=== PATIENT | female | born 1975 | race Caucasian/White ===

== ENCOUNTER → 2017-04-26 | Outpatient (CLI) | payer OTHER | END | disposition home or self-care (01) | LOC: C.PAPS 11:09 | PROVIDERS: ATTEND Physician Assistant | DX: Z12.4 Encounter for screening for malignant neoplasm of cervix (principal); Z97.5 Presence of (intrauterine) contraceptive device ==

== ENCOUNTER → 2017-06-23 | Outpatient (CLI) | payer OTHER ==
--- NOTE | 2017-06-23 11:46 | DIAGNOSTIC IMAGING REPORT ---
MRI OF THE RIGHT SHOULDER WITHOUT CONTRAST CLINICAL HISTORY: Worsening right shoulder pain with limited range of motion. COMPARISON STUDY: No previous studies for comparison. TECHNIQUE: Utilizing a 1.5 Thelma magnet and dedicated coil, multiplanar, multiecho imaging of the right shoulder performed without intravenous or intra-articular contrast. FINDINGS: Alignment of the right shoulder is anatomic. There is no marrow replacement. No fracture is evident. There is a posterior superior labral tear. In addition, there is a suspected anterior inferior labral tear with associated periosteal stripping. Adjacent soft tissue edema is present. The proximal long head of the biceps tendon is intact. There is no full-thickness rotator cuff tear. There is tendinopathy of distal supraspinatus with possible partial-thickness surface tear. There is no tendon retraction or muscular atrophy. No mass or fluid collection shown adjacent to the right shoulder. IMPRESSION: 1. Posterior superior labral tear. In addition, suspected anterior inferior labral tear with associated periosteal stripping with mild adjacent soft tissue edema. 2. Tendinopathy of distal supraspinatus with suspected partial thickness bursal surface tear. No tendon retraction or muscular atrophy. No full-thickness rotator cuff tear. Electronically signed by: Yao Elmore M.D. 06/23/2017 11:45 AM Dictated Date/Time: 06/23/2017 11:33 AM
== END | disposition home or self-care (01) ==
LOC: C.MRI 10:21
PROVIDERS: ATTEND Family Medicine
DX: S43.491A Other sprain of right shoulder joint, initial encounter (principal); X58.XXXA Exposure to other specified factors, initial encounter; M75.91 Shoulder lesion, unspecified, right shoulder

== ENCOUNTER → 2017-08-11 | Day surgery (SDC) | payer OTHER ==
[2017-07-29 09:58] VITALS: Ht 160 cm; Wt 62.7 kg
[~2017-08-11] VITALS: Ht 160 cm; Wt 62.7 kg
[~2017-08-11] MED LIST: ATROPINE SULFATE 0.1 MG/ML 5ML SYR IV PRN; BCPILLS PO; BUPIVACAINE/EPINEPHRINE 0.25% 1:200,000 30 ML VIAL ONE; CALC500T72 PO; CEFAZOLIN 2000MG IV PUSH 15 ML IV SCH; CHOL400T PO; DEXAMETHASONE SOD INJ 4 MG/ML VIAL IV PRN; EpHEDrine SULFATE INJ 50 MG/ML AMP IV PRN; EpINEphrine HCL INJ 1 MG/ML 1ML SYRINGE ONE; FENTANYL CITRATE INJ 50 MCG/1 ML 2 ML VIAL IV PRN; IBUP-1459 PO; KETO10TA PO; KETOROLAC TROMETHAMINE 30 MG/ML VIAL IV. PRN; LABETALOL HCL IV 5 MG/ML 20ML IV PRN; LACTATED RINGER'S 1000ML 1,000 ML IV SCH; LIDOCAINE HCL 1% MPF 2 ML VIAL ONE; LIDOCAINE HCL 2% 2 ML VIAL (20MG/ML) ONE; LIDOCAINE HCL 2% LOCAL 20 ML VIAL ONE; METHYLPREDNISOLONE ACETATE 80 MG/ML VIAL ONE; METOCLOPRAMIDE HCL INJ 5 MG/ML 2 ML VIAL IV PRN; MIDAZOLAM HCL 1 MG/ML 2ML VIAL ONE; MULT-506 PO; MoRPHine SULFATE 10 MG/ML CARP/VIAL IV PRN; ONDANSETRON INJ 2 MG/ML 2 ML VIAL IV PRN; OXYC-57 PO; OXYCODONE/ACETAMINOPHEN 5-325 TAB ONE; OXYCODONE/ACETAMINOPHEN 5-325 TAB PO PRN; PHENYLEPHRINE 100MCG/ML 5ML SYR IV PRN; PROPOFOL IV EMULSION 10 MG/ML 20 ML VIAL IV ONE; ROPIVACAINE 0.5% 5 MG/ML 30 ML VIAL ONE; SODIUM CHLORIDE 0.9% 1000ML 1,000 ML IV SCH
--- NOTE | 2017-08-11 06:50 | History & Physical Bridge - SC ---
H&P Re-Evaluation Bridge Note: I have examined the patient, reviewed the History & Physical and in the interval since the performance of the History & Physical I have noted the following changes of clinical significance: No changes noted
--- NOTE | 2017-08-11 09:09 | [facility] Post Operative Brief Note ---
Immediate Operative Summary Operative Date Aug 11, 2017. Pre-Operative Diagnosis Right Shoulder Adhesive Capsulitis Post-Operative Diagnosis same as preop Procedure(s) Performed Extensive Debridement, Lysis of Adhesions Surgeon Dr. Catalan Logging Operations Inspector Surgeon(s) NEIL Palomino Estimated Blood Loss 5cc Findings Consistent with Post-Op Diagnosis Specimens none Drains None Anesthesia Type MAC Regional Complication(s) none Disposition Disposition: Recovery Room / PACU
--- NOTE | 2017-08-11 09:17 | Discharge Instructions-SurgCtr ---
Discharge Instructions Date of Service Aug 11, 2017. Visit Reason for Visit: Right Shoulder Adhesive Capsulitis Discharge Discharge Diagnosis / Problem: SAME ABOVE Discharge Goals Goal(s): Decrease discomfort, Improve function Activity Recommendations Activity Limitations: as noted below Lifting Limitations: gradually increase as tolerated Exercise/Sports Limitations: gradually increase as tolerated Shower/Bathe: tomorrow Anesthesia . Post Anesthesia Instructions: If you have had General Anesthesia or IV Sedation: * Do not drive today. * Resume driving when surgeon permits. * Do not make important decisions or sign legal documents today. * Call surgeon for: 1. Temperature elevations greater than 101 degrees F. 2. Uncontrollable pain. 3. Excessive bleeding. 4. Persistent nausea and vomiting. 5. Medication intolerance (nausea, vomiting or rash). * For nausea and vomiting use only clear liquids such as: tea, soda, bouillon until nausea subsides, then gradually increase diet as tolerated. * If you have any concerns or questions, call your surgeon's office. If physician is unavailable and it is an emergency, call 911 or go to the nearest emergency room. . Instructions / Follow-Up Instructions / Follow-Up MEDICATIONS: * Resume previous medications unless instructed otherwise by your surgeon. * Always take pain medication on a full stomach or with food to avoid upset stomach. * Do not drink alcohol or drive while taking narcotics. * Ibuprofen or Tylenol may be taken if narcotic not needed. SPECIAL CARE INSTRUCTIONS: __ None _X_ Keep extremity elevated and iced x 48 hours; apply ice 20-30 minutes 8-10 times/day. May remove at night. _X_ Sling (REMOVE AFTER 24 HOURS) __24 hrs/day __ Remove at night __ Shoulder Immobilizer __ 24 hrs/day __ Remove at night _X_ Dressing __ Maintain until seen in office, may shower with plastic over site _X_ Remove dressings in 24-48 hours and then may shower _X_ Cover incisions with band-aids after showering __ Do not remove steri-strips Call physician if chills or temperature rises above 102 degrees or pain unrelieved by prescribed pain medications at . . Diet Recommendations Home Diet: no limitations Fluid Restriction: None Procedures Procedures Performed: Extensive Debridement, Lysis of Adhesions Pending Studies Studies pending at discharge: no Work Instructions Return To Work: 3 days (OR WHEN PAIN IS CONTROLLED ) Lifting Limitations: none Medical Emergencies . Who to Call and When: Medical Emergencies: If at any time you feel your situation is an emergency, please call 911 immediately. . Non-Emergent Contact Non-Emergency issues call your: Primary Care Provider Call Non-Emergent contact if: you have a fever, temperature is above 101.5 . . "Provider Documentation" section prepared by Donny Pena. .
--- NOTE | 2017-08-11 09:37 | OPERATIVE REPORT ---
DATE OF OPERATION: 08/11/2017 PREOPERATIVE DIAGNOSIS: Adhesive capsulitis of the right shoulder. POSTOPERATIVE DIAGNOSIS: Same. PROCEDURE: Right shoulder diagnostic arthroscopy with extensive debridement, lysis of adhesions and manipulation under anesthesia. SURGEON: Dr. Hector Catalan. MACHINE PAINT MIXER: Billy Pena PA-C, whose assistance was necessary for helping with positioning the arm and helping with instrumentation and closure. ANESTHESIA: Sedation with a right interscalene nerve block. COMPLICATIONS: None. CONDITION: Stable to PACU. INDICATIONS: Fabby is a pleasant 42-year-old female who presented to my office with increasing pain and tightness of her right shoulder. MRI and clinical examination were diagnostic for adhesive capsulitis of the right shoulder. After failing conservative treatment, she elected to proceed with a right shoulder capsular release. DESCRIPTION OF PROCEDURE: On 08/11/2017, she arrived at [facility] for the above procedure. She was seen in the preoperative holding area and the operative extremity was identified and signed. She was given a preoperative antibiotic and a right interscalene nerve block. She was taken back to the operating room, laid on the table in supine position and put under basic sedation. She was then put into the beachchair position. The right shoulder was prepped and draped in the sterile fashion. Time-out was done and the patient's operative extremity was properly identified. On preoperative physical examination, she had about 80 degrees of abduction and 30 degrees of external rotation. A gentle manipulation was done under anesthesia to facilitate insertion of the arthroscope. The scope was then placed in the posterior portal. Diagnostic arthroscopy showed severe redness and inflammation of the superior, middle and inferior glenohumeral ligaments. There was no cartilage damage to the humeral head or the glenoid. An anterior portal was made under direct visualization and a shaver was used to start an extensive debridement of the intraarticular structures. The synovitis was debrided from the superior glenohumeral ligament, but did not fully release the ligament. Time was spent freeing up the long head of the biceps tendon. An ablator was then used to do a lysis of adhesions and open up the entire rotator interval all the way to the undersurface of the coracoid. The ablator was also lysed the adhesions off the middle and anterior inferior glenohumeral ligaments. A shaver was then used to continue debridement and debride back redundant capsule back to stable margins. Significant time was spent ensuring hemostasis. Care was taken not to disrupt the subscapularis or the axillary nerve. Once I was happy with the overall release, arthroscopic instruments were removed from the shoulder and gentle manipulation was done under anesthesia. I was able to get full range of motion of the shoulder. The scope was placed back into the glenohumeral joint and a final diagnostic arthroscopy showed no additional pathology. An ablator was used to ensure hemostasis and a spinal needle was placed for an injection. Arthroscopic instruments were removed from the shoulder. Portal sites were closed with 3-0 nylon. The shoulder was then injected with 80 mg of Depo-Medrol and 5 mL of Marcaine. She was then placed in a soft dressing and regular arm sling. She was then extubated, transferred to a litter and taken to the postanesthesia care unit in stable condition. She tolerated the procedure well. I attest to the content of the Intraoperative Record and any orders documented therein. Any exception s are noted below.
[2017-08-11 10:13] VITALS: BP 108/75; PULSE 83; O2SAT 96
--- NOTE | 2017-08-11 10:37 | Anesthesia Progress Nt - [facility] ---
Anesthesia Post Op Note Date & Time Aug 11, 2017 at 10:37 Vital Signs Pain Intensity: 6 Vital Signs Past 12 Hours Date Time Temp Pulse Resp B/P (MAP) Pulse Ox O2 Delivery O2 Flow Rate FiO2 08/11/17 10:13 83 16 108/75 (86) 96 Room Air 08/11/17 09:14 36.8 77 16 106/78 (87) 99 Room Air 77 08/11/17 08:32 82 08/11/17 08:32 82 143 100 08/11/17 08:30 100/70 08/11/17 08:27 71 6 100 08/11/17 08:27 71 08/11/17 08:25 99/68 08/11/17 08:22 69 08/11/17 08:22 69 0 100 08/11/17 08:20 99/67 08/11/17 08:17 73 10 100 08/11/17 08:17 74 08/11/17 08:15 102/81 08/11/17 08:12 73 18 100 08/11/17 08:12 73 08/11/17 08:10 105/73 08/11/17 08:08 123/75 08/11/17 08:08 75 25 123/75 (91) 100 Mask 6 08/11/17 08:07 91 0 08/11/17 08:02 79 0 08/11/17 07:17 37.1 77 18 103/76 (85) 97 Room Air Notes Mental Status: alert / awake / arousable, participated in evaluation Pt Amnestic to Procedure: Yes Nausea / Vomiting: adequately controlled Pain: adequately controlled Airway Patency, RR, SpO2: stable & adequate BP & HR: stable & adequate Hydration State: stable & adequate Anesthetic Complications: no major complications apparent
== END | disposition home or self-care (01) ==
LOC: X.SURG 06:34
PROVIDERS: ATTEND Orthopaedic Surgery
DX: M75.01 Adhesive capsulitis of right shoulder (principal); Z98.890 Other specified postprocedural states; Z82.49 Family history of ischemic heart disease and other diseases of the circulatory system; Z82.3 Family history of stroke; Z80.0 Family history of malignant neoplasm of digestive organs